=== PATIENT | male | born 1930 | race Caucasian/White ===

== ENCOUNTER 2016-12-12 01:34 | Emergency (ER) | payer OTHER ==
[2016-12-12 01:53] VITALS: BP 186/87; PULSE 99; TEMP 97.5; BMI 29.5
--- NOTE | 2016-12-12 01:59 | PDOC ---
History of Present Illness - General Chief Complaint: Urinary Problem Stated Complaint: URINARY PROBLEM Time Seen by Provider: 12/12/16 01:46 History Source: Patient, Family, Old Records, Primary Care Provider Exam Limitations: No Limitations - History of Present Illness Initial Comments: 12/12/16 01:49 86 y m a-fib, htn, prostate ca sent by (dr carlisle) for treatment of acute urinary retention after silicone injection today no fever, no other complaint. in ed in nad. hemodynamically stable Past History - Past Medical History Allergies/Adverse Reactions: Allergies Allergy/AdvReac Type Severity Reaction Status Date / Time No Known Allergies Allergy Verified 12/12/16 01:46 Home Medications: Ambulatory Orders Atorvastatin Calcium [Lipitor] 10 mg PO HS 09/10/16 Meloxicam [Mobic (Nf) -] 15 mg PO DAILY 09/10/16 Mirabegron [Myrbetriq] 50 mg PO AM 09/10/16 Oxybutynin Chloride [Oxybutynin Chloride ER] 10 mg PO DAILY 09/10/16 Rivaroxaban [Xarelto -] 10 mg PO DAILY 09/10/16 Solifenacin Succinate [Vesicare -] 10 mg PO HS 09/10/16 Cancer: Yes (H/O PROSTATE, BLADDER.) - Psycho/Social/Smoking Cessation Hx Anxiety: No Suicidal Ideation: No Smoking History: Never smoked Hx Alcohol Use: No Drug/Substance Use Hx: No Substance Use Type: None *Physical Exam - Physical Exam General Appearance: Yes: Nourished, Appropriately Dressed. No: Apparent Distress HEENT: positive: Normal ENT Inspection Respiratory/Chest: positive: Lungs Clear, Normal Breath Sounds. negative: Respiratory Distress Cardiovascular: positive: Regular Rhythm, Regular Rate, Irregularly Irregular Gastrointestinal/Abdominal: positive: Normal Bowel Sounds, Tender (suprapubic area), Soft Male Genitalia: positive: normal genitalia. negative: testicular mass, epididymus tender, inguinal hernia, CVAT Musculoskeletal: positive: Normal Inspection. negative: CVA Tenderness Integumentary: positive: Normal Color Neurologic: positive: Alert, Normal Mood/Affect, Normal Response, Motor Strength 5/5 Progress Note - Progress Note Progress Note: acute urinary retention murillo leg bag *DC/Admit/Observation/Transfer Diagnosis at time of Disposition: Acute urinary retention - Discharge Dispostion Disposition: HOME Condition at time of disposition: Improved - Patient Instructions Additional Instructions: KEEP MURILLO AND DRAIN BAG INSTRUCTED CONTINUE MEDICATIONS PRESCRIBED SEE DR. CARLISLE SATURDAY PLANNED
[2016-12-12 02:14] LABS: URINE BILIRUBIN NEGATIVE (NEGATIVE); URINE COLOR LTYELLOW; URINE GLUCOSE (UA) NEGATIVE (NEGATIVE); URINE KETONE NEGATIVE (NEGATIVE); URINE LEUK ESTERASE NEGATIVE (NEGATIVE); URINE NITRITE NEGATIVE (NEGATIVE); URINE UROBILINOGEN NEGATIVE E.U./dl (0.2-1.0)
[2016-12-12 02:16] LABS: URINE APPEARANCE SL CLOUDY; URINE BLOOD 3+ (NEGATIVE); URINE PROTEIN 1+ (NEGATIVE)
[2016-12-12 02:20] LABS: URINE RBC 240 /hpf (0-3); URINE WBC 4 /hpf (3-5)
== END 2016-12-12 02:09 | disposition home or self-care (01) ==
LOC: JER 01:34
PROC: 0T9B70Z Drainage of Bladder with Drainage Device, Via Natural or Artificial Opening (ICD-10-PCS; principal; 2016-12-12)
DX: R33.9 Retention of urine, unspecified (principal); I48.91 Unspecified atrial fibrillation; I10 Essential (primary) hypertension; Z85.46 Personal history of malignant neoplasm of prostate; Z85.51 Personal history of malignant neoplasm of bladder
CPT/HCPCS: 51702; 81003; 81015; 87086; 99282-25

== ENCOUNTER 2017-07-08 23:05 | Inpatient (IN) | payer OTHER ==
--- NOTE | 2017-07-09 00:05 | PDOC ---
History of Present Illness - General Stated Complaint: BLOOD IN BOWELS Time Seen by Provider: 07/09/17 00:01 - History of Present Illness Initial Comments: 07/09/17 00:04 CHIEF COMPLAINT: rectal bleeding HISTORY OF PRESENT ILLNESS: 86 yo M with hx of a-fib (on Xarelto), HLD, and bladder/prostate CA presents to ED with rectal bleeding. Patient's daughter is at bedside and states that the bleeding began tonight. The daughter reports that during dinner tonight the patient went to the restroom and the entire bowl was full of bloody stool. She states that two more episodes occurred tonight, both with a significant amount of blood in the toilet bowl. Patient denies any abdominal pain, shortness of breath, chest pain, palpitations, lightheadedness, dizziness, headache, and repeatedly states that he has no other symptoms at this time. PAST MEDICAL HISTORY: as per HPI FAMILY HISTORY: Denies SOCIAL HISTORY: Denies tobacco, alcohol, illicit drug use. SURGICAL HISTORY: Denies ALLERGIES: No known drug allergies REVIEW OF SYSTEMS General/Constitutional: Denies fever or chills. Denies weakness, weight change. HEENT: Denies change in vision. Denies ear pain or discharge. Denies sore throat. Cardiovascular: Denies chest pain or shortness of breath. Respiratory: Denies cough, wheezing, or hemoptysis. Gastrointestinal: Rectal bleeding. Denies nausea, vomiting, diarrhea or constipation. Denies rectal bleeding. Genitourinary: Denies dysuria, frequency, or change in urination. Musculoskeletal: Denies joint or muscle swelling or pain. Denies neck or back pain. Skin and breasts: Denies rash or easy bruising. Neurologic: Denies headache, vertigo, loss of consciousness, or loss of sensation. PHYSICAL EXAM General Appearance: Well-appearing, appropriately dressed. No apparent distress. HEENT: EOMI, PERRLA, normal ENT inspection, normal voice, TMs normal, pharynx normal. No conjunctival pallor. No photophobia, scleral icterus. Neck: Supple. Trachea midline. No tenderness, rigidity, carotid bruit, stridor , lymphadenopathy, or thyromegaly. Respiratory/Chest: Lungs CTAB. No shortness of breath, chest tenderness, respiratory distress, accessory muscle use. No crackles, rales, rhonchi, stridor , wheezing, dullness Cardiovascular: RRR. S1, S2. No JVD, murmur, bradycardia, tachycardia. Vascular Pulses: Dorsalis-Pedis (R): 2+, Dorsalis-Pedis (L): 2+ Gastrointestinal/Abdominal: Normal bowel sounds. Abdomen soft, non-distended. No tenderness or rebound tenderness. No organomegaly, pulsatile mass, guarding , hernia, hepatomegaly, splenomegaly. Lymphatic: No adenopathy, tenderness. Musculoskeletal/Extremities: Normal inspection. FROM of all extremities, normal capillary refill. Pelvis Stable. No CVA tenderness. No tenderness to extremities, pedal edema, swelling, erythema or deformity. Integumentary: Appropriate color, dry, warm. No cyanosis, erythema, jaundice or rash Neurologic: ups driver II-XII intact. Fully oriented, alert. Appropriate mood/affect. Motor strength 5/5. No appreciable EOM palsy, facial droop or sensory deficit. 07/09/17 00:53 Past History - Past Medical History Allergies/Adverse Reactions: Allergies Allergy/AdvReac Type Severity Reaction Status Date / Time No Known Allergies Allergy Verified 07/09/17 00:39 Home Medications: Ambulatory Orders Mirabegron [Myrbetriq] 50 mg PO AM 09/10/16 Oxybutynin Chloride [Oxybutynin Chloride ER] 10 mg PO DAILY 09/10/16 Solifenacin Succinate [Vesicare -] 10 mg PO HS 09/10/16 Cholecalciferol (Vitamin D3) [Vitamin D3] 2,000 unit PO DAILY 01/22/17 Rivaroxaban [Xarelto -] 20 mg PO DAILY 01/22/17 Ibuprofen 800 mg PO ASDIR 01/23/17 Anemia: No Asthma: No Cancer: Yes (H/O PROSTATE, BLADDER.) Cardiac Disorders: Yes (hx atrial fibrillation) CVA: No COPD: No CHF: No Dementia: No Diabetes: No GI Disorders: No Disorders: No HTN: No Hypercholesterolemia: No Liver Disease: No Seizures: No Thyroid Disease: No - Surgical History Abdominal Surgery: No Appendectomy: No Cardiac Surgery: No Cholecystectomy: No Lung Surgery: No Neurologic Surgery: No Orthopedic Surgery: No - Psycho/Social/Smoking Cessation Hx Anxiety: No Suicidal Ideation: No Smoking History: Never smoked Hx Alcohol Use: No Drug/Substance Use Hx: No Substance Use Type: None ED Treatment Course - LABORATORY CBC & Chemistry Diagram: 07/09/17 00:25 07/09/17 00:25 Medical Decision Making - Medical Decision Making 07/09/17 00:58 86 yo M with hx of a-fib (on Xarelto), HLD, and bladder/prostate CA presents to ED with rectal bleeding. -CBC, CMP, PT/PTT/INR, T&S, card profile -EKG Grossly positive guaiac. H&H stable at this time, will repeat CBC in 6 hours for continued monitoring. Discussed case with covering MD Zacarias for PCP Hans. Will admit for inpatient services for active rectal bleeding. *DC/Admit/Observation/Transfer Diagnosis at time of Disposition: Rectal bleeding - Discharge Dispostion Condition at time of disposition: Fair Admit: Yes - Referrals Referrals: Haroon Maxwell MD [Primary Care Provider] -
[2017-07-09 00:34] LABS: BASOPHIL 0.8 % (0-2.0); EOSINOPHIL 2.6 % (0-4.5); MCH 33.3 pg (25.7-33.7); MEAN CELL VOLUME 97.9 fl (80-96); MEAN PLT VOLUME 9.4 fl (7.5-11.1); NEUTROPHILS 46.5 % (42.8-82.8); PLATELET COUNT 179 K/MM3 (134-434); RDW 15.4 % (11.9-15.9); WHITE BLOOD COUNT 5.9 K/mm3 (4.0-10.0)
[2017-07-09 00:49] LABS: INR 1.53 (0.82-1.09)
[2017-07-09 00:51] LABS: ACTIVATED PTT 36.7 SECONDS (26.9-34.4)
[2017-07-09 01:01] LABS: ALBUMIN 3.4 g/dl (3.4-5.0); ANION GAP 8 (8-16); BILIRUBIN,TOTAL 0.4 mg/dL (0.2-1.0); CALCIUM 8.2 mg/dL (8.5-10.1); CO2 25 mmol/L (21-32); GLUCOSE,RANDOM 100 mg/dL (74-106); SGOT/AST 18 U/L (15-37); SGPT/ALT 25 U/L (12-78); TOT PROT 6.5 g/dl (6.4-8.2)
[2017-07-09 01:04] LABS: ALK PHOS 86 U/L (45-117); CPK 94 IU/L (39-308); TROPONIN I < 0.02 ng/ml (0.00-0.05)
[2017-07-09] MEDS ORDERED: PATIENT'S OWN MEDICATION (NON-FORMULARY) (Ibuprofen [Ibuprofen] 800 MG) PO SCH (01:45)
[2017-07-09 02:02] LABS: URINE APPEARANCE CLEAR; URINE BILIRUBIN NEGATIVE (NEGATIVE); URINE BLOOD 1+ (NEGATIVE); URINE COLOR YELLOW; URINE GLUCOSE (UA) NEGATIVE (NEGATIVE); URINE KETONE NEGATIVE (NEGATIVE); URINE LEUK ESTERASE NEGATIVE (NEGATIVE); URINE NITRITE NEGATIVE (NEGATIVE); URINE PROTEIN NEGATIVE (NEGATIVE); URINE UROBILINOGEN NEGATIVE mg/dL (0.2-1.0)
[2017-07-09 02:04] LABS: URINE BACTERIA RARE /hpf (NONE SEEN); URINE MUCUS RARE; URINE RBC 6 /hpf (0-3); URINE WBC 1 /hpf (3-5)
[2017-07-09] MEDS: DEXTROSE 5%-0.45% SALINE 1,000 ML IV SCH ×3 (02:12→18:09)
[2017-07-09 04:03] VITALS: BMI 30.7
[2017-07-09 07:55] LABS: BASOPHIL 0.6 % (0-2.0); EOSINOPHIL 3.3 % (0-4.5); MCH 33.2 pg (25.7-33.7); MCHC 33.7 g/dl (32.0-35.9); MEAN CELL VOLUME 98.4 fl (80-96); MEAN PLT VOLUME 9.8 fl (7.5-11.1); NEUTROPHILS 46.4 % (42.8-82.8); PLATELET COUNT 175 K/MM3 (134-434); RDW 15.1 % (11.9-15.9); WHITE BLOOD COUNT 5.7 K/mm3 (4.0-10.0)
[2017-07-09] MEDS: CHOLECALCIFEROL (VITAMIN D3) 1,000 UNIT TABLET (FP) PO SCH (09:17)
--- NOTE | 2017-07-09 10:50 | CON.GI ---
Consult Consult Specialty:: GI for Dr. Ragland Referred by:: Dr. Haroon Maxwell Reason for Consultation:: Rectal bleeding - History of Present Illness [facility] [employer] [id number] Utilized: "I started having rectal bleeding last night" History of Present Illness: 86M admitted for evaluation of rectal bleeding. He was in his USOH up until yesterday evening. he was at his daughter's house for a birthday libertarian, felt he was going to have a bowel and instead passed bright red blood. This occurred again at his house and he was brought to the ER by family. He had a bloody BM in the ER and earliy in the morn. Triage vitals revealed T: 98.6 P: 68 BP: 158/92. BHis initial Hgb was 13.3. He denied associated lightheadedness , chest pain, shortness of breath, chest pain, constipation or recent change in bowel habits. In review of the [employer] system he had colonoscopy with Dr. Gasca in 2004 that revealed moderate diverticulosis throughout the colon and led to removal of a serrated adenoma as well as tubular adenoma. He recommended a repeat colonoscopy in 2 years however Mr. Basurto has not had one performed since that time. He takes Xarelto preumably for A. Fib and last took it yesterday morning. Ibuprofen is listed on his admission medication list however his daughter denies that Mr. aBsurto takes this. There is no family history of colorectal cancer or other GI malignancy. - History Source History Provided By: Patient, Family Member (Adelina Medley via telephone [phone]) - Past Medical History Cardio/Vascular: Yes: AFIB, HTN Gastrointestinal: Yes: Diverticulosis, Other (colon polyps: tubular adenoma and serrated adenoma 2004) Renal/: Yes: Cancer (prostate, bladder) - Past Surgical History Past Surgical History: Yes: Cataract Removal, Joint Replacement (Left Knee) - Alcohol/Substance Use Hx Alcohol Use: No History of Substance Use: reports: None - Smoking History Smoking history: Never smoked Have you smoked in the past 12 months: No - Social History Usual Living Arrangement: With Spouse ADL: Independent 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 [employer] Place of : Other ([employer] [facility]) History of Recent Travel: No Home Medications - Allergies Allergies/Adverse Reactions: Allergies Allergy/AdvReac Type Severity Reaction Status Date / Time No Known Allergies Allergy Verified 07/09/17 00:39 - Home Medications Home Medications: Ambulatory Orders Mirabegron [Myrbetriq] 50 mg PO AM 09/10/16 Oxybutynin Chloride [Oxybutynin Chloride ER] 10 mg PO DAILY 09/10/16 Solifenacin Succinate [Vesicare -] 10 mg PO HS 09/10/16 Cholecalciferol (Vitamin D3) [Vitamin D3] 2,000 unit PO DAILY 01/22/17 Rivaroxaban [Xarelto -] 20 mg PO DAILY 01/22/17 Ibuprofen 800 mg PO ASDIR 01/23/17 Family Disease History - Family Disease History Family Disease History: Other: Father ( 70's unclear cause), Mother (: 70's unclear cause), Sister (1, healthy), Daughter (hyponatremia) Other Family History: No family history of colorectal cancer or other GI malignancy Review of Systems - Review of Systems Constitutional: denies: Chills, Unintentional Wgt. Loss Cardiovascular: denies: Chest Pain, Shortness of Breath Respiratory: denies: Cough Gastrointestinal: reports: Rectal Bleeding. denies: Abdominal Pain, Constipation, Diarrhea, Dysphagia, Melena, Nausea, Vomiting, Vomiting Blood Physical Exam-GI Vital Signs: Vital Signs Temperature 97.7 F 07/09/17 09:21 Pulse Rate 53 L 07/09/17 09:21 Respiratory Rate 20 07/09/17 09:21 Blood Pressure 136/73 07/09/17 09:21 O2 Sat by Pulse Oximetry (%) 98 07/09/17 03:53 Constitutional: Yes: Calm Eyes: No: Sclera Icterus Cardiovascular: Yes: Pulse Irregular (regular rate), Murmur (2/6 systolic murmur ) Respiratory: Yes: CTA Bilaterally Gastrointestinal Inspection: No: Ascites, Distention, Scars ...Auscultate: Yes: Normoactive Bowel Sounds ...Palpate: Yes: Soft. No: Hepatomegaly, Splenomegaly, Tenderness ...Percussion: No: Tympanitic Extremities: Yes: Other (scar on left knee) Edema: No Neurological: Yes: Alert Labs: CBC, BMP 07/09/17 06:00 INR, PTT INR 1.53 (0.82-1.09) H 07/09/17 00:25 Problem List - Problems (1) Rectal bleeding Assessment/Plan: Painless Rectal Bleeding: Given previous colonoscopy findings, I suspect that diverticular bleeding would need to be higher in the differential. I explained that to assess for alternate causes of bleeding like but not limited to colon polyps, bleeding blood vessels or cancer of the intestinal tract such as colon, especially in the setting of anticoagulation, colonoscopy could be undertaken. I explained this to both Mr. Basurto using [employer] Sales Office Assistant [phone] and his daughter and We discussed potential risks of the procedure like but not limited to bleeding, perforation requiring surgery to repair, infection and sedation medication effects all of which could be potentially life threatening. They both have agreed to the procedure. Plan is as follows: Continue to hold Xarelto in setting of GI bleeding. Last dose was yesterday morning and should be held 24 hours prior to low risk procedure with nl GFR Clear liquid diet Surgical evaluation If worsening bleeding, transefer to ICU and obtain bleeding scan. If appears to be profuse bleeding, CT angiogram Echo ordered as well as cardiology consult pre-procedurally Plan for colonoscopy 07/10/17. NPO after midnight except meds w/ small sips water. Code(s): K62.5 - HEMORRHAGE OF ANUS AND RECTUM
--- NOTE | 2017-07-09 11:58 | HP ---
Admitting History and Physical - Primary Care Physician PCP: Haroon Maxwell - Admission Chief Complaint: I was bleeding History of Present Illness: Mr Sb Norris is a pleasant 86 year old male who comes in with rectal bleeding. He is Russian speaking so history and ROS comes through his daughter. She says that he has been doing well and is without complaint. However yesterday he felt he needed to have a bowel movement but instead it was bright red blood. Daughter says it was a lot. At first he did not desire to come to the hospital because he was feeling fine but it occurred a second time and he agreed to come. In spite of this he is without complaint. He denies fevers, chills, lightheadedness, passing out, chest pain, shortness of breath, nausea, vomiting, difficulty or pain on urination, or leg swelling. He states his bleeding has currently stopped. 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 [employer] History of Recent Travel: No Home Medications - Allergies Allergies/Adverse Reactions: Allergies Allergy/AdvReac Type Severity Reaction Status Date / Time No Known Allergies Allergy Verified 07/09/17 00:39 - Home Medications Home Medications: Ambulatory Orders Mirabegron [Myrbetriq] 50 mg PO AM 09/10/16 Oxybutynin Chloride [Oxybutynin Chloride ER] 10 mg PO DAILY 09/10/16 Solifenacin Succinate [Vesicare -] 10 mg PO HS 09/10/16 Cholecalciferol (Vitamin D3) [Vitamin D3] 2,000 unit PO DAILY 01/22/17 Rivaroxaban [Xarelto -] 20 mg PO DAILY 01/22/17 Ibuprofen 800 mg PO ASDIR 01/23/17 Family Disease History - Family Disease History Family Disease History: Other: Father ( 70's unclear cause), Mother (: 70's unclear cause), Sister (1, healthy), Daughter (hyponatremia) Other Family History: No family history of colorectal cancer or other GI malignancy Review of Systems Findings/Remarks: Full review of systems obtained via daughter, as per HPI and otherwise negative Physical Examination Vital Signs: Vital Signs Temperature 36.5 C 07/09/17 09:21 Pulse Rate 53 L 07/09/17 09:21 Respiratory Rate 20 07/09/17 09:21 Blood Pressure 136/73 07/09/17 09:21 O2 Sat by Pulse Oximetry (%) 98 07/09/17 03:53 Constitutional: Yes: Well Nourished, No Distress, Calm Eyes: Yes: Conjunctiva Clear, EOM Intact, PERRL Cardiovascular: Yes: Regular Rate and Rhythm. No: Gallop, Murmur, Rub Respiratory: Yes: Regular, CTA Bilaterally. No: Rales, Rhonchi, Wheezes Gastrointestinal: Yes: Normal Bowel Sounds, Soft. No: Distention, Tenderness Extremities: Yes: WNL Edema: No Labs: CBC, BMP 07/09/17 06:00 Problem List - Problems (1) Rectal bleeding Assessment/Plan: -appreciate GI assistance -xarelto held -monitor for further bleeding -H/H decreased but still within normal range, no need for transfusion -consult general surgery per GI request -planning for colonoscopy Code(s): K62.5 - HEMORRHAGE OF ANUS AND RECTUM (2) Atrial fibrillation Assessment/Plan: -sounds in sinus rhythm on exam -holding xarelto secondary to GI bleed -cardiology consult for cardiology clearance Code(s): I48.91 - UNSPECIFIED ATRIAL FIBRILLATION Qualifiers: Atrial fibrillation type: paroxysmal Qualified Code(s): I48.0 - Paroxysmal atrial fibrillation (3) HLD (hyperlipidemia) Assessment/Plan: -diet controlled Code(s): E78.5 - HYPERLIPIDEMIA, UNSPECIFIED (4) Nocturia Assessment/Plan: -continue vesicare and myrbetriq Code(s): R35.1 - NOCTURIA
[2017-07-09 13:02] LABS: BASOPHIL 0.8 % (0-2.0); EOSINOPHIL 2.3 % (0-4.5); MCH 32.7 pg (25.7-33.7); MCHC 33.3 g/dl (32.0-35.9); MEAN CELL VOLUME 98.3 fl (80-96); MEAN PLT VOLUME 9.7 fl (7.5-11.1); NEUTROPHILS 54.3 % (42.8-82.8); PLATELET COUNT 180 K/MM3 (134-434); WHITE BLOOD COUNT 5.5 K/mm3 (4.0-10.0)
--- NOTE | 2017-07-09 14:56 | CON.CARD ---
Consult Consult Specialty:: cardio Referred by:: brock Reason for Consultation:: rectal bleeding, afib - History of Present Illness Chief Complaint: same History of Present Illness: 86 yo male on xarelto for afib came with bright rectal bleeding. seen by GI. for colonoscopy tomorrow pt states he is comfortable and denies cp, palpitations, sob or syncope PMH: AFib HPL--declines statin - Past Medical History Cardio/Vascular: Yes: AFIB, HTN Gastrointestinal: Yes: Diverticulosis, Other (colon polyps: tubular adenoma and serrated adenoma 2004) Renal/: Yes: Cancer (prostate, bladder) - Past Surgical History Past Surgical History: Yes: Cataract Removal, Joint Replacement (Left Knee) - Alcohol/Substance Use Hx Alcohol Use: No History of Substance Use: reports: None - Smoking History Smoking history: Never smoked Have you smoked in the past 12 months: No - Social History Usual Living Arrangement: With Spouse ADL: Independent 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[facility] [employer] History of Recent Travel: No Home Medications - Allergies Allergies/Adverse Reactions: Allergies Allergy/AdvReac Type Severity Reaction Status Date / Time No Known Allergies Allergy Verified 07/09/17 00:39 - Home Medications Home Medications: Ambulatory Orders Mirabegron [Myrbetriq] 50 mg PO AM 09/10/16 Oxybutynin Chloride [Oxybutynin Chloride ER] 10 mg PO DAILY 09/10/16 Solifenacin Succinate [Vesicare -] 10 mg PO HS 09/10/16 Cholecalciferol (Vitamin D3) [Vitamin D3] 2,000 unit PO DAILY 01/22/17 Rivaroxaban [Xarelto -] 20 mg PO DAILY 01/22/17 Ibuprofen 800 mg PO ASDIR 01/23/17 Family Disease History - Family Disease History Family Disease History: Other: Father ( 70's unclear cause), Mother (: 70's unclear cause), Sister (1, healthy), Daughter (hyponatremia) Other Family History: No family history of colorectal cancer or other GI malignancy Review of Systems - Review of Systems Constitutional: denies: Chills, Fever Eyes: denies: Eye Pain HENT: denies: Nasal Congestion Neck: denies: Stiffness Cardiovascular: denies: Palpitations Respiratory: denies: Orthopnea, PND Gastrointestinal: denies: Diarrhea, Vomiting Blood Genitourinary: denies: Burning, Hematuria Musculoskeletal: denies: Muscle Pain Integumentary: denies: Rash Neurological: denies: Numbness, Seizure, Syncope Endocrine: denies: Excessive Sweating Hematology/Lymphatic: denies: Excessive Bleeding Vital Signs: Vital Signs Temperature 97.7 F 07/09/17 09:21 Pulse Rate 53 L 07/09/17 09:21 Respiratory Rate 20 07/09/17 09:21 Blood Pressure 136/73 07/09/17 09:21 O2 Sat by Pulse Oximetry (%) 97 07/09/17 09:00 Constitutional: Yes: Well Nourished, No Distress Eyes: No: Sclera Icterus HENT: No: Nasal Congestion Neck: No: Decreased ROM Respiratory: Yes: CTA Bilaterally. No: Accessory Muscle Use, Rales, Wheezes Gastrointestinal: Yes: Normal Bowel Sounds. No: Distention, Hepatomegaly, Palpable Mass, Tenderness Cardiovascular: Yes: Pulse Irregular JVD: No Carotid Bruit: No PMI: Non-Displaced Heart Sounds: Yes: S1, S2. No: Gallop Murmur: No: Systolic Murmur, Diastolic Murmur Musculoskeletal: Yes: Other (No kyphosis) Extremities: No: Cool, Cyanosis Edema: No Peripheral Pulses: 2+ Left Carotid, 2+ Right Carotid, 2+ Left Doralis Pedis, 2+ Right Dorsalis Pedis Integumentary: No: Jaundice Neurological: Yes: Alert. No: Seizure Psychiatric: No: Agitated - Other Data Labs, Other Data: CBC, BMP 07/09/17 12:20 INR, PTT INR 1.53 (0.82-1.09) H 07/09/17 00:25 Laboratory Tests 07/09/17 07/09/17 00:25 00:25 WBC 5.9 Hgb 13.3 Plt Count 179 Sodium 138 Potassium 4.6 Carbon Dioxide 25 BUN 23 H D Creatinine 1.0 AST 18 D ALT 25 Creatine Kinase 94 Troponin I < 0.02 Assessment/Plan Echo 04/19: nl LV/EF; nl RV; mild AI Echo 07/21 (): nl LV size, LVSF tds; nl RV; mild-mod AI ECG: afib (67 bpm); normal axis; ? old IWMI; no ST-T abn (no change vs prior office ecg 12/21) Permanent atrial fibrillation --HR CONTROLLED ON ITS OWN, normal LVEF 2016 echo --CHADS-VASC 2, TOLERATED XARELTO PREVIOUSLY, NOW WITH RECTAL BLEEDING--HE IS NOT ANEMIC, BUT IN LIGHT OF LOW CHADS-VASC SCORE AND NO PRIOR H/O CVA, AGREE WITH HOLDING AC UNTIL RISK-STRATIFIED MORE COMPLETELY WITH COLONOSCOPY. Hypercholesterolemia --PRIMARY PREVN, ELDERLY. --ASCVD RISK (AHA CALCULATOR) AT LEAST 30%. --LOW HDL WELL --REC'D STATIN 2015 IN OFFICE WHEN SAW ME--PT DECLINES MEDS preop CV eval: --RCRI = 0, ? functional status --no s/sx of active chf or CAD --may proceed with low risk procedure at low risk of periop CV complications, no testing or med changes indicated
[2017-07-09] MEDS ORDERED: BISACODYL 5 MG TABLET.DR (FP) PO ONE (15:00)
[2017-07-09] MEDS ORDERED: PEG3350/SOD SULF,BICARB,CL/KCL 4,000 ML SOLN.RECON PO ONE (16:00)
--- NOTE | 2017-07-09 17:40 | EKG ---
Test Reason : Blood Pressure : / mmHG Vent. Rate : 067 BPM Atrial Rate : 076 BPM P-R Int : 000 ms QRS Dur : 086 ms QT Int : 404 ms P-R-T Axes : 000 -20 050 degrees QTc Int : 426 ms ATRIAL FIBRILLATION WITH A COMPETING JUNCTIONAL PACEMAKER POSSIBLE INFERIOR INFARCT , AGE UNDETERMINED ABNORMAL ECG WHEN COMPARED WITH ECG OF 10-SEP-2016 13:39, NO SIGNIFICANT CHANGE WAS FOUND REPEAT EKG IF CLINICALLY INDICATED Confirmed by YOU DE LA CRUZ MD ([id number]) on 07/09/2017 5:39:44 PM Referred By: Confirmed By:YOU DE LA CRUZ MD
[2017-07-09 19:04] LABS: MCH 33.3 pg (25.7-33.7); MEAN CELL VOLUME 98.1 fl (80-96); MEAN PLT VOLUME 9.6 fl (7.5-11.1); NEUTROPHILS 48.7 % (42.8-82.8); PLATELET COUNT 184 K/MM3 (134-434); RDW 14.8 % (11.9-15.9); WHITE BLOOD COUNT 6.5 K/mm3 (4.0-10.0)
[2017-07-09] MEDS: SOLIFENACIN SUCCINATE 5 MG TAB (FP) PO SCH (21:23)
--- NOTE | 2017-07-10 08:03 | CONSULT ---
- Consultation REQUESTING PROVIDER: Criselda Nguyen CONSULT REQUEST: We have been asked to surgically evaluate this patient for ( specify). PCP:Tirso Zacarias HISTORY OF PRESENT ILLNESS: 86 y/o Portugese male presented w/ rectal bleeding; he has not had any since admission; he is on Xarelto; hx. obtained from the chart and the patient; he will be having colonoscopy today. PMHx: reviewed PSHx: none Home Medications Medication Instructions Recorded Mirabegron [Myrbetriq] 50 mg PO AM 09/10/16 Oxybutynin Chloride [Oxybutynin 10 mg PO DAILY 09/10/16 Chloride ER] Solifenacin Succinate [Vesicare -] 10 mg PO HS 09/10/16 Cholecalciferol (Vitamin D3) 2,000 unit PO DAILY 01/22/17 [Vitamin D3] Rivaroxaban [Xarelto -] 20 mg PO DAILY 01/22/17 Ibuprofen 800 mg PO ASDIR 01/23/17 Allergies Allergy/AdvReac Type Severity Reaction Status Date / Time No Known Allergies Allergy Verified 07/09/17 00:39 PHYSICAL EXAM: GENERAL: Awake, alert, and fully oriented, in no acute distress. HEAD: Normal with no signs of trauma. EYES:sclera anicteric, conjunctiva clear. ABDOMEN: Soft, nontender, not distended, normoactive bowel sounds, no guarding, no rebound, no masses. No organomegaly. No hernias MUSCULOSKELETAL: Normal ROM at all joints. No bony deformities or tenderness. No CVA tenderness. UPPER EXTREMITIES: 2+ pulses, warm, well-perfused. No cyanosis. Cap refill <2 seconds. No peripheral edema. LOWER EXTREMITIES: 2+ pulses, warm, well-perfused. No calf tenderness. No peripheral edema. NEUROLOGICAL: Normal speech, gait not observed. PSYCH: Cooperative. Good eye contact. Appropriate mood and affect. SKIN: Warm, dry, normal turgor, no rashes or lesions note Vital Signs Temperature 98.4 F 07/10/17 06:40 Pulse Rate 65 07/10/17 06:40 Respiratory Rate 18 07/10/17 06:40 Blood Pressure 126/68 07/10/17 06:40 O2 Sat by Pulse Oximetry (%) 96 07/09/17 21:00 Lab Results WBC 6.5 K/mm3 (4.0-10.0) 07/09/17 18:50 RBC 3.97 M/mm3 (4.00-5.60) L 07/09/17 18:50 Hgb 13.2 GM/dL (11.7-16.9) 07/09/17 18:50 Hct 39.0 % (35.4-49) 07/09/17 18:50 MCV 98.1 fl (80-96) H 07/09/17 18:50 MCHC 34.0 g/dl (32.0-35.9) 07/09/17 18:50 RDW 14.8 % (11.9-15.9) 07/09/17 18:50 Plt Count 184 K/MM3 (134-434) 07/09/17 18:50 Sodium 138 mmol/L (136-145) 07/09/17 00:25 Potassium 4.6 mmol/L (3.5-5.1) 07/09/17 00:25 Chloride 105 mmol/L (98-107) 07/09/17 00:25 Carbon Dioxide 25 mmol/L (21-32) 07/09/17 00:25 Anion Gap 8 (8-16) 07/09/17 00:25 BUN 23 mg/dL (7-18) H D 07/09/17 00:25 Creatinine 1.0 mg/dL (0.7-1.3) 07/09/17 00:25 Random Glucose 100 mg/dL (74-106) 07/09/17 00:25 Calcium 8.2 mg/dL (8.5-10.1) L 07/09/17 00:25 Blood Type O POSITIVE 07/09/17 00:25 Antibody Screen Negative 07/09/17 00:25 INR 1.53 (0.82-1.09) H 07/09/17 00:25 w/u to date reviewed; h/h stable. IMP:LGIB PLAN: As per primary care team and GI;surgical f/u as needed pending colonoscopy findings and/or active/fina/eed in hospital. Himanshu Croft MD FACS Visit type - Case Type Case Type: ED Admission - Emergency Emergency Visit: Yes ED Registration Date: 07/09/17 Care time: The patient presented to the Emergency Department on the above date and was hospitalized for further evaluation of their emergent condition. - New patient This patient is new to me today: Yes Date on this admission: 07/10/17 - Critical Care Critical Care patient: No
[2017-07-10 08:57] LABS: BASOPHIL 0.6 % (0-2.0); MCHC 33.8 g/dl (32.0-35.9); MEAN CELL VOLUME 97.7 fl (80-96); MEAN PLT VOLUME 9.6 fl (7.5-11.1); NEUTROPHILS 48.2 % (42.8-82.8); PLATELET COUNT 180 K/MM3 (134-434); RDW 15.2 % (11.9-15.9); WHITE BLOOD COUNT 4.9 K/mm3 (4.0-10.0)
[2017-07-10] MEDS ORDERED: PROPOFOL 20 ML ONE (08:58)
[2017-07-10] MEDS: DEXTROSE 5%-0.45% SALINE 1,000 ML IV SCH (09:48)
[2017-07-10 09:55] LABS: ALBUMIN 3.3 g/dl (3.4-5.0); ANION GAP 7 (8-16); CALCIUM 8.5 mg/dL (8.5-10.1); CO2 28 mmol/L (21-32); GLUCOSE,RANDOM 96 mg/dL (74-106); MAGNESIUM 1.9 mg/dL (1.8-2.4)
[2017-07-10 09:59] LABS: ALK PHOS 84 U/L (45-117); BILIRUBIN,TOTAL 1.1 mg/dL (0.2-1.0); PHOSPHOROUS 3.2 mg/dL (2.5-4.9); SGOT/AST 15 U/L (15-37); SGPT/ALT 21 U/L (12-78)
--- NOTE | 2017-07-10 10:08 | PN ---
Progress Note (short form) - Note Progress Note: GI Procedure Note: Please see scanned colonoscopy report. No active bleeding seen. Polyp removed and diverticulosis identified but the most likely source of bleeding appears to be hemorrhoids. Sitz baths advised. Would refrain from Xarelto for 10 days. A French staff member served as our detective supervisor.
[2017-07-10] MEDS: CHOLECALCIFEROL (VITAMIN D3) 1,000 UNIT TABLET (FP) PO SCH (12:21)
--- NOTE | 2017-07-10 15:05 | PN ---
Progress Note, Physician Chief Complaint: Mr Basurto is without complaint. Denies cp, sob, n/v. - Current Medication List Current Medications: Active Medications Cholecalciferol (Vitamin D3 -) 2,000 unit PO DAILY [facility] Last Admin: 07/10/17 12:21 Dose: 2,000 unit Dextrose/Sodium Chloride (D5-1/2ns -) 1,000 mls @ 42 mls/hr IV ASDIR [facility] Last Admin: 07/10/17 09:48 Dose: Not Given Non-Formulary Medication (Mirabegron [Myrbetriq]) 50 mg PO AM [facility]SH[facility] Solifenacin (Vesicare -) 10 mg PO HS [facility] Last Admin: 07/09/17 21:23 Dose: 10 mg - Objective Vital Signs: Vital Signs Temperature 36.6 C 07/10/17 10:05 Pulse Rate 65 07/10/17 12:00 Respiratory Rate 18 07/10/17 12:00 Blood Pressure 141/83 07/10/17 12:00 O2 Sat by Pulse Oximetry (%) 98 07/10/17 10:13 Constitutional: Yes: Well Nourished, No Distress, Calm Cardiovascular: Yes: Regular Rate and Rhythm. No: Gallop, Murmur, Rub Respiratory: Yes: Regular, CTA Bilaterally. No: Rales, Rhonchi, Wheezes Gastrointestinal: Yes: Normal Bowel Sounds, Soft. No: Distention, Tenderness Extremities: Yes: WNL Edema: No Labs: CBC, BMP 07/10/17 06:30 07/10/17 07:00 INR, PTT INR 1.53 (0.82-1.09) H 07/09/17 00:25 Problem List - Problems (1) Rectal bleeding Code(s): K62.5 - HEMORRHAGE OF ANUS AND RECTUM (2) Atrial fibrillation Code(s): I48.91 - UNSPECIFIED ATRIAL FIBRILLATION Qualifiers: Atrial fibrillation type: paroxysmal Qualified Code(s): I48.0 - Paroxysmal atrial fibrillation (3) HLD (hyperlipidemia) Code(s): E78.5 - HYPERLIPIDEMIA, UNSPECIFIED (4) Nocturia Code(s): R35.1 - NOCTURIA Assessment/Plan (1) Rectal bleeding Assessment/Plan: -s/p colonoscopy -suspected hemorrhoidal bleed -hold xarelto for 10 days -high fiber diet and sitz bath Code(s): K62.5 - HEMORRHAGE OF ANUS AND RECTUM (2) Atrial fibrillation Assessment/Plan: -holding xarelto -continue current management Code(s): I48.91 - UNSPECIFIED ATRIAL FIBRILLATION Qualifiers: Atrial fibrillation type: paroxysmal Qualified Code(s): I48.0 - Paroxysmal atrial fibrillation (3) HLD (hyperlipidemia) Assessment/Plan: -diet controlled Code(s): E78.5 - HYPERLIPIDEMIA, UNSPECIFIED (4) Nocturia Assessment/Plan: -continue vesicare and myrbetriq Code(s): R35.1 - NOCTURIA Dispo -possible discharge tomorrow
[2017-07-10] MEDS: PATIENT'S OWN MEDICATION (NON-FORMULARY) (Mirabegron [Myrbetriq] 50 MG) PO SCH ×2 (18:50→18:51)
[2017-07-10] MEDS ORDERED: PT OWN MED DRAWER 7, Y5N ONE (18:52)
--- NOTE | 2017-07-10 20:40 | PN ---
Progress Note (short form) - Note Progress Note: Chief Complaint: same History of Present Illness: S: had endoscopy today. no further episodes of bleeding. no cp, palps, dizziness, sob. Current Medications Cholecalciferol (Vitamin D3 -) 2,000 unit PO DAILY [facility] Last Admin: 07/10/17 12:21 Dose: 2,000 unit Dextrose/Sodium Chloride (D5-1/2ns -) 1,000 mls @ 42 mls/hr IV ASDIR [facility] Last Admin: 07/10/17 09:48 Dose: Not Given Non-Formulary Medication (Mirabegron [Myrbetriq]) 50 mg PO AM [facility] Last Admin: 07/10/17 18:51 Dose: Not Given Solifenacin (Vesicare -) 10 mg PO HS [facility] Last Admin: 07/09/17 21:23 Dose: 10 mg Vital Signs - 24 hr 07/09/17 07/10/17 07/10/17 21:00 06:40 08:25 Temperature 97.9 F 98.4 F 97.5 F L Pulse Rate 66 65 55 L Respiratory 18 18 18 Rate Blood Pressure 145/96 126/68 148/75 O2 Sat by Pulse 96 Oximetry (%) 07/10/17 07/10/17 07/10/17 09:00 09:43 09:58 Temperature 97.8 F Pulse Rate 61 51 L Respiratory 18 19 Rate Blood Pressure 129/89 137/87 O2 Sat by Pulse 96 97 97 Oximetry (%) 07/10/17 07/10/17 07/10/17 10:05 10:13 12:00 Temperature 97.8 F Pulse Rate 50 L 57 L 65 Respiratory 15 14 18 Rate Blood Pressure 150/77 160/76 141/83 O2 Sat by Pulse 97 98 Oximetry (%) 07/10/17 07/10/17 15:08 16:30 Temperature 97.9 F 97.9 F Pulse Rate 61 55 L Respiratory 18 20 Rate Blood Pressure 112/51 100/56 O2 Sat by Pulse Oximetry (%) Intake & Output 07/08/17 07/09/17 07/10/17 07/11/17 07:59 07:59 07:59 07:59 Intake Total 2492 886 Output Total 400 1500 800 Balance -400 992 86 Weight 202 lb 5 oz Constitutional: Yes: Well Nourished, No Distress Eyes: No: Sclera Icterus HENT: No: Nasal Congestion Neck: No: Decreased ROM Respiratory: Yes: CTA Bilaterally. No: Accessory Muscle Use, Rales, Wheezes Gastrointestinal: Yes: Normal Bowel Sounds. No: Distention, Hepatomegaly, Palpable Mass, Tenderness Cardiovascular: Yes: Pulse Irregular JVD: No Carotid Bruit: No PMI: Non-Displaced Heart Sounds: Yes: S1, S2. No: Gallop Murmur: No: Systolic Murmur, Diastolic Murmur Musculoskeletal: Yes: Other (No kyphosis) Extremities: No: Cool, Cyanosis Edema: No Peripheral Pulses: 2+ Left Carotid, 2+ Right Carotid, 2+ Left Doralis Pedis, 2+ Right Dorsalis Pedis Integumentary: No: Jaundice Neurological: Yes: Alert. No: Seizure Psychiatric: No: Agitated - Other Data Labs, Other Data: CBC, BMP 07/10/17 06:30 07/10/17 07:00 Assessment/Plan Echo 04/19: nl LV/EF; nl RV; mild AI Echo 07/21 (): nl LV size, LVSF tds; nl RV; mild-mod AI ECG: afib (67 bpm); normal axis; ? old IWMI; no ST-T abn (no change vs prior office ecg 12/21) 86 yo with h/o afib on xarelto, hl, divertculosis, prostatec ca who p/w brbpr. Permanent atrial fibrillation --HR CONTROLLED ON ITS OWN, normal LVEF 2015 echo --CHADS-VASC 2, TOLERATED XARELTO PREVIOUSLY, NOW WITH RECTAL BLEEDING--HE IS NOT ANEMIC, BUT IN LIGHT OF LOW CHADS-VASC SCORE AND NO PRIOR H/O CVA, AGREE WITH HOLDING AC UNTIL RISK-STRATIFIED MORE COMPLETELY WITH COLONOSCOPY. - 07/10 s/p endoscopy today. per gi, recommend holding xarelto for 10 days. Hypercholesterolemia --PRIMARY PREVN, ELDERLY. --ASCVD RISK (AHA CALCULATOR) AT LEAST 30%. --LOW HDL WELL --REC'D STATIN 2015 IN OFFICE WHEN SAW ME--PT DECLINES MEDS preop CV eval: --RCRI = 0, ? functional status --no s/sx of active chf or CAD - cleared to proceed with low risk procedure, estimated to have low risk of periop CV complications, no testing or med changes indicated
[2017-07-10] MEDS: SOLIFENACIN SUCCINATE 5 MG TAB (FP) PO SCH (21:44)
[2017-07-11] MEDS: DEXTROSE 5%-0.45% SALINE 1,000 ML IV SCH (01:04)
[2017-07-11] MEDS: PATIENT'S OWN MEDICATION (NON-FORMULARY) (Mirabegron [Myrbetriq] 50 MG) PO SCH (06:42)
[2017-07-11] MEDS ORDERED: PT OWN MED DRAWER 7, Y5N ONE ×2 (07:12→13:18)
[2017-07-11 07:45] LABS: BASOPHIL 0.7 % (0-2.0); MCH 33.1 pg (25.7-33.7); MCHC 33.8 g/dl (32.0-35.9); MEAN CELL VOLUME 97.8 fl (80-96); MEAN PLT VOLUME 9.7 fl (7.5-11.1); PLATELET COUNT 187 K/MM3 (134-434); RDW 14.9 % (11.9-15.9); WHITE BLOOD COUNT 7.1 K/mm3 (4.0-10.0)
[2017-07-11 08:12] LABS: ANION GAP 7 (8-16); CALCIUM 8.3 mg/dL (8.5-10.1); CO2 28 mmol/L (21-32); GLUCOSE,RANDOM 98 mg/dL (74-106); PHOSPHOROUS 3.5 mg/dL (2.5-4.9)
[2017-07-11] MEDS: CHOLECALCIFEROL (VITAMIN D3) 1,000 UNIT TABLET (FP) PO SCH (09:54)
--- NOTE | 2017-07-11 12:11 | DS ---
Physical Examination Vital Signs: Vital Signs Temperature 36.4 C 07/11/17 04:00 Pulse Rate 82 07/11/17 04:00 Respiratory Rate 20 07/11/17 04:00 Blood Pressure 152/68 07/11/17 04:00 O2 Sat by Pulse Oximetry (%) 98 07/10/17 21:00 Constitutional: Yes: Well Nourished, No Distress, Calm Cardiovascular: Yes: Regular Rate and Rhythm. No: Gallop, Murmur, Rub Respiratory: Yes: Regular, CTA Bilaterally. No: Rales, Rhonchi, Wheezes Gastrointestinal: Yes: Normal Bowel Sounds, Soft. No: Distention, Tenderness Extremities: Yes: WNL Edema: No Labs: CBC, BMP 07/11/17 06:00 07/11/17 06:00 Discharge Summary Reason For Visit: RECTAL BLEEDING Current Active Problems Rectal bleeding (Acute) Hospital Course: (1) Rectal bleeding Code(s): K62.5 - HEMORRHAGE OF ANUS AND RECTUM (2) Atrial fibrillation Code(s): I48.91 - UNSPECIFIED ATRIAL FIBRILLATION Qualifiers: Atrial fibrillation type: paroxysmal Qualified Code(s): I48.0 - Paroxysmal atrial fibrillation (3) HLD (hyperlipidemia) Code(s): E78.5 - HYPERLIPIDEMIA, UNSPECIFIED (4) Nocturia Code(s): R35.1 - NOCTURIA Mr Sb Norris is a very pleasant 86 year old male who comes in with LGIB. He was admitted to the hospital and seen by GI. He was also seen by surgery but no surgical intervention was needed. He was on xarelto and this was held. His bleeding stopped while he was here. He underwent colonscopy which showed a polyp and internal hemorrhoids. Internal hemorrhoids were most likely cause for GI bleed. His blood count remained stable while here and did not require transfusion, he did not have anemia. He is currently stable for discharge home. His family was instructed to hold xarelto until 07/20, place patient on a high fiber diet, and use stool softeners if necessary. 35 minutes spent in preparation of this discharge Condition: Good - Instructions Diet, Activity, Other Instructions: High fiber diet. Hold xarelto for 8 more days (resume on 07/20). Avoid ibuprofen. Resume previous diet. Over the counter stool softeners (like metamucil or miralax) as needed to prevent constipation/hard stool. Referrals: Haroon Maxwell MD [Primary Care Provider] - Pati Francis MD [Staff Physician] - Disposition: HOME - Home Medications Comprehensive Discharge Medication List: Ambulatory Orders Mirabegron [Myrbetriq] 50 mg PO AM 09/10/16 Oxybutynin Chloride [Oxybutynin Chloride ER] 10 mg PO DAILY 09/10/16 Solifenacin Succinate [Vesicare -] 10 mg PO HS 09/10/16 Cholecalciferol (Vitamin D3) [Vitamin D3] 2,000 unit PO DAILY 01/22/17 Rivaroxaban [Xarelto -] 20 mg PO DAILY 01/22/17
[2017-07-11 12:23] VITALS: BP 127/74; PULSE 76; TEMP 97.9
--- NOTE | 2017-07-11 13:06 | PATH ---
Surgical Pathology Report Patient Name: JASON SALVADOR Med. Rec. #: [id number] /Age/Gender: 1930 (Age: 86) / M Account: [id number] Location: [facility] MED/SURG Taken: 07/10/2017 Received: 07/10/2017 Reported: 07/11/2017 Physicians: Pati Francis M.D. Specimen(s) Received A: BX CECAL POLYP B: DISTAL TRANSVERSE COLON POLYP C: RECTAL POLYP Clinical History Rectal bleeding Diverticulosis, colon polyps (cecum, distal transverse colon, rectum) Final Diagnosis A. COLON, CECUM, POLYP, BIOPSY: CONSISTENT WITH AN INFLAMMATORY-TYPE POLYP. B. COLON, DISTAL TRANSVERSE, POLYP, POLYPECTOMY: TUBULAR ADENOMA. C. RECTUM, POLYP, POLYPECTOMY: SERRATED ADENOMA. Electronically Signed Vj Hernández M.D. Gross Description A. Received in formalin, labeled "biopsy cecal polyp" is a rudd, irregular portion of soft tissue measuring 0.4 cm in greatest dimension. The specimen is submitted in toto in one cassette. B. Received in formalin, labeled "distal transverse colon polyp" is a rudd, irregular portion of soft tissue measuring 0.1 cm in greatest dimension. The specimen is submitted in toto in one cassette. C. Received in formalin, labeled "rectal polyp" is a rudd, polypoid portion of soft tissue measuring 0.7 cm in greatest dimension. The specimen is submitted in toto in one cassette. /07/10/201707/10/2017
== END 2017-07-11 13:18 | disposition home or self-care (01) | DRG 253 ==
LOC: JER 23:05 → JERBED 07-09 01:37 → J8W 07-09 03:47
PROVIDERS: ADMIT Specialist; ATTEND Specialist
PROC: 0DBL8ZX Excision of Transverse Colon, Via Natural or Artificial Opening Endoscopic, Diagnostic (ICD-10-PCS; 2017-07-10)
PROC: 0DBH8ZX Excision of Cecum, Via Natural or Artificial Opening Endoscopic, Diagnostic (ICD-10-PCS; principal; 2017-07-10 09:00)
DX: K62.5 Hemorrhage of anus and rectum (principal); I48.2 Chronic atrial fibrillation; C79.11 Secondary malignant neoplasm of bladder; Z79.01 Long term (current) use of anticoagulants; E78.5 Hyperlipidemia, unspecified; R35.1 Nocturia; K64.8 Other hemorrhoids; C61 Malignant neoplasm of prostate; K57.90 Diverticulosis of intestine, part unspecified, without perforation or abscess without bleeding; K63.5 Polyp of colon
CPT/HCPCS: 36415; 80048; 80053; 81003; 81015; 82272; 83735; 84100; 84484; 85025; 85610; 85730; 86850; 86900; 86901; 87086; 88305-TC; 93005; 93010; 93306-TC; 99282-25

== ENCOUNTER 2018-01-13 07:44 | Emergency (ER) | payer MEDICARE, OTHER ==
[2018-01-13] MEDS ORDERED: RAPID SEQUENCE INTUBATION KIT NR ONE (07:55)
[2018-01-13] MEDS ORDERED: PROPOFOL 1,000,000 MCG/100 ML VIAL ONE (08:06)
[2018-01-13 08:15] VITALS: BMI 30.4
[2018-01-13 08:34] LABS: HEMATOCRIT 45.4 % (35.4-49); HEMOGLOBIN 15.3 GM/dL (11.7-16.9); MCH 32.9 pg (25.7-33.7); MCHC 33.7 g/dl (32.0-35.9); MEAN CELL VOLUME 97.5 fl (80-96); MEAN PLT VOLUME 9.9 fl (7.5-11.1); PLATELET COUNT 142 K/MM3 (134-434); RBC 4.66 M/mm3 (4.00-5.60); RDW 14.4 % (11.9-15.9); WHITE BLOOD COUNT 10.4 K/mm3 (4.0-10.0)
[2018-01-13 08:36] LABS: VENOUS PC02 49.4 mmHg (38-52); VENOUS PH 7.29 (7.32-7.42)
[2018-01-13 08:50] LABS: INR 1.12 (0.82-1.09); PROTHROMBIN TIME (PATIENT) 12.6 SEC (9.98-11.88)
[2018-01-13 08:52] LABS: ACTIVATED PTT 26.6 SECONDS (26.9-34.4)
[2018-01-13 09:05] LABS: ALBUMIN 3.6 g/dl (3.4-5.0); ANION GAP 14 (8-16); BILIRUBIN,TOTAL 0.7 mg/dL (0.2-1.0); BLOOD UREA NITROGEN 20 mg/dL (7-18); CALCIUM 8.5 mg/dL (8.5-10.1); CHLORIDE 104 mmol/L (98-107); CO2 22 mmol/L (21-32); CREATININE 1.3 mg/dL (0.7-1.3); GLUCOSE,RANDOM 152 mg/dL (74-106); POTASSIUM 3.8 mmol/L (3.5-5.1); SGOT/AST 28 U/L (15-37); SGPT/ALT 23 U/L (12-78); SODIUM 140 mmol/L (136-145); TOT PROT 7.4 g/dl (6.4-8.2)
[2018-01-13 09:08] LABS: ALK PHOS 92 U/L (45-117)
[2018-01-13] MEDS ORDERED: EPINEPHrine 1:10,000 (P-F SYR) 1 MG/10 ML DISP.SYRIN ONE ×2 (09:28)
[2018-01-13 09:58] LABS: ALBUMIN 2.6 g/dl (3.4-5.0); ANION GAP 14 (8-16); BILIRUBIN,TOTAL 0.4 mg/dL (0.2-1.0); BLOOD UREA NITROGEN 22 mg/dL (7-18); CHLORIDE 108 mmol/L (98-107); CO2 18 mmol/L (21-32); CREATININE 1.5 mg/dL (0.7-1.3); GLUCOSE,RANDOM 280 mg/dL (74-106); POTASSIUM 4.4 mmol/L (3.5-5.1); SGOT/AST 25 U/L (15-37); SGPT/ALT 22 U/L (12-78); SODIUM 140 mmol/L (136-145); TOT PROT 5.1 g/dl (6.4-8.2)
[2018-01-13 09:59] LABS: ALK PHOS 65 U/L (45-117)
--- NOTE | 2018-01-13 10:12 | PDOC ---
History of Present Illness - General History Source: EMS, Family Exam Limitations: Clinical Condition - History of Present Illness Initial Comments: 01/13/18 10:17 Patient is an 87M with history of afib on xarelto, prostate cancer, blood cancer and HLD here today complaining of chest pain. Family reports that he was in his usual state of health yesterday. The chest pain started 30 minutes prior to arrival. EMS reports elevated blood pressures in the field with heart rates in the 40-60s. Patient was alert and talking in the field. Patient arrived in the ED, got an EKG, then lost pulses. <Eusebio Huertas - Last Filed: 01/13/18 11:04> <Angel Banerjee - Last Filed: 01/13/18 11:26> - General Chief Complaint: Chest Pain Stated Complaint: CHEST PAIN Time Seen by Provider: 01/13/18 08:20 Past History - Past Medical History Anemia: No Asthma: No Cancer: Yes (H/O PROSTATE, BLADDER.) Cardiac Disorders: Yes (hx atrial fibrillation) CVA: No COPD: No CHF: No Dementia: No Diabetes: No GI Disorders: No Disorders: No HTN: No Hypercholesterolemia: No Liver Disease: No Seizures: No Thyroid Disease: No - Surgical History Abdominal Surgery: No Appendectomy: No Cardiac Surgery: No Cholecystectomy: No Lung Surgery: No Neurologic Surgery: No Orthopedic Surgery: No - Immunization History Immunization Up to Date: No - Suicide/Smoking/Psychosocial Hx Smoking History: Never smoked Have you smoked in the past 12 months: No Hx Alcohol Use: No Drug/Substance Use Hx: No Substance Use Type: None <Eusebio Huertas - Last Filed: 01/13/18 11:04> <Angel Banerjee - Last Filed: 01/13/18 11:26> - Past Medical History Allergies/Adverse Reactions: Allergies Allergy/AdvReac Type Severity Reaction Status Date / Time No Known Allergies Allergy Verified 07/09/17 00:39 Home Medications: Ambulatory Orders Mirabegron [Myrbetriq] 50 mg PO AM 09/10/16 Oxybutynin Chloride [Oxybutynin Chloride ER] 10 mg PO DAILY 09/10/16 Solifenacin Succinate [Vesicare -] 10 mg PO HS 09/10/16 Cholecalciferol (Vitamin D3) [Vitamin D3] 2,000 unit PO DAILY 03/21/17 Rivaroxaban [Xarelto -] 20 mg PO DAILY 01/22/17 Review of Systems - Review of Systems Able to Perform ROS?: No (2/2 clinical condition) <Eusebio Huertas - Last Filed: 01/13/18 11:04> *Physical Exam - Vital Signs Last Vital Signs Temp Pulse Resp BP Pulse Ox 119 H 26 H 131/113 98 01/13/18 07:50 01/13/18 08:20 01/13/18 07:50 01/13/18 07:50 - Physical Exam Comments: 01/13/18 10:23 GENERAL: Intubated, sedated HEAD: No signs of trauma, normocephalic, atraumatic EYES: PERRLA, EOMI, sclera anicteric, conjunctiva clear ENT: Auricles normal inspection, hearing grossly normal, nares patent, oropharynx clear without exudates. Moist mucosa NECK: Normal ROM, supple, no lymphadenopathy, JVD, or masses LUNGS: No distress, speaks full sentences, clear to auscultation bilaterally HEART: Tachycardic, normal s1/s2. ABDOMEN: Soft, nontender. No guarding, no rebound. No masses EXTREMITIES: Normal inspection, No edema. No clubbing or cyanosis. SKIN: Warm, Dry, normal turgor, no rashes or lesions noted. <Eusebio Huertas - Last Filed: 01/13/18 11:04> - Vital Signs Last Vital Signs Temp Pulse Resp BP Pulse Ox 119 H 26 H 131/113 98 01/13/18 07:50 01/13/18 08:20 01/13/18 07:50 01/13/18 07:50 <Angel Banerjee - Last Filed: 01/13/18 11:26> Procedures - Central Line Central Line Lumen: triple Central Line Position: femoral (L) Amount of anesthesia (ccs): 0 (crash) Complications: none Post Central Line Insertion: sutured, good blood return - Intubation Time of Intubation: 07:57 Intubation Method: orotracheal Blade used: Rothman Tube Size (Fr): 7.0 Medications: Etomidate, Succinylcholine Tube position @ lip (cm): 21 Tube position confirmed by: Direct visualization, CO2 detector, Chest x-ray, Breath sounds Breath Sounds after Intubation: equal Intubation Complications: no complications Post Intubation Xray: Yes (tube appropriately placed, widened mediastinum) - Additional Procedures Additional Procedures: other (Pericardiocentesis) Progress: 01/13/18 10:13 Patient was without pulses with evidence of pericardial tamponade on bedside ultrasound. The patients thorax was prepped in a sterile fashion. Ultrasound was used to identify the fluid and observe the needle entering the pericardial space. The needle was introduced into the pericardial space. 15-20ml fluid was removed. The needle was then removed. The patient tolerated the procedure. Blood loss was minimal. <Eusebio Huertas - Last Filed: 01/13/18 11:04> ED Treatment Course - LABORATORY CBC & Chemistry Diagram: 01/13/18 08:19 01/13/18 09:17 - ADDITIONAL ORDERS Additional order review: Laboratory Results 01/13/18 01/13/18 01/13/18 08:30 08:19 08:19 PT with INR INR PTT (Actin FS) VBG pH POC VBG pCO2 POC VBG pO2 Mixed VBG HCO3 Sodium 140 Potassium 3.8 Chloride 104 Carbon Dioxide 22 D Anion Gap 14 BUN 20 H D Creatinine 1.3 D Creat Clearance w eGFR 52.22 POC Glucometer Random Glucose 152 H D Lactic Acid 4.3 H* Calcium 8.5 Total Bilirubin 0.7 D AST 28 D ALT 23 Alkaline Phosphatase 92 Troponin I 0.02 Total Protein 7.4 D Albumin 3.6 01/13/18 01/13/18 01/13/18 08:19 08:19 08:05 PT with INR 12.60 H INR 1.12 PTT (Actin FS) 26.6 L VBG pH 7.29 L POC VBG pCO2 49.4 POC VBG pO2 19.0 L* Mixed VBG HCO3 22.8 Sodium Potassium Chloride Carbon Dioxide Anion Gap BUN Creatinine Creat Clearance w eGFR POC Glucometer [id number] Random Glucose Lactic Acid Calcium Total Bilirubin AST ALT Alkaline Phosphatase Troponin I Total Protein Albumin 01/13/18 01/13/18 08:19 08:05 RBC 4.66 D MCV 97.5 H MCHC 33.7 RDW 14.4 MPV 9.9 Neutrophils % No Result Required. Lymphocytes % No Result Required. POC Glucometer [id number] - RADIOLOGY Radiology Studies Ordered: Category Date Time Status CHEST X-RAY PORTABLE* [RAD] Stat Radiology 01/13/18 08:20 Completed <Eusebio Huertas - Last Filed: 01/13/18 11:04> - LABORATORY CBC & Chemistry Diagram: 01/13/18 08:19 01/13/18 09:17 - ADDITIONAL ORDERS Additional order review: Laboratory Results 01/13/18 01/13/18 01/13/18 09:17 08:30 08:19 PT with INR INR PTT (Actin FS) VBG pH POC VBG pCO2 POC VBG pO2 Mixed VBG HCO3 Sodium 140 Potassium 4.4 Chloride 108 H Carbon Dioxide 18 L Anion Gap 14 BUN 22 H Creatinine 1.5 H Creat Clearance w eGFR 44.27 POC Glucometer Random Glucose 280 H D Lactic Acid 4.3 H* Calcium 6.9 L* Total Bilirubin 0.4 D AST 25 ALT 22 Alkaline Phosphatase 65 D Troponin I < 0.02 0.02 Total Protein 5.1 L D Albumin 2.6 L D 01/13/18 01/13/18 01/13/18 08:19 08:19 08:19 PT with INR 12.60 H INR 1.12 PTT (Actin FS) 26.6 L VBG pH 7.29 L POC VBG pCO2 49.4 POC VBG pO2 19.0 L* Mixed VBG HCO3 22.8 Sodium 140 Potassium 3.8 Chloride 104 Carbon Dioxide 22 D Anion Gap 14 BUN 20 H D Creatinine 1.3 D Creat Clearance w eGFR 52.22 POC Glucometer Random Glucose 152 H D Lactic Acid Calcium 8.5 Total Bilirubin 0.7 D AST 28 D ALT 23 Alkaline Phosphatase 92 Troponin I Total Protein 7.4 D Albumin 3.6 01/13/18 08:05 PT with INR INR PTT (Actin FS) VBG pH POC VBG pCO2 POC VBG pO2 Mixed VBG HCO3 Sodium Potassium Chloride Carbon Dioxide Anion Gap BUN Creatinine Creat Clearance w eGFR POC Glucometer 162.75832 Random Glucose Lactic Acid Calcium Total Bilirubin AST ALT Alkaline Phosphatase Troponin I Total Protein Albumin 01/13/18 01/13/18 08:19 08:05 RBC 4.66 D MCV 97.5 H MCHC 33.7 RDW 14.4 MPV 9.9 Neutrophils % No Result Required. Lymphocytes % No Result Required. POC Glucometer [id number] <Angel Banerjee - Last Filed: 01/13/18 11:26> Medical Decision Making - Critical Care Time Total Critical Care Time (minutes): 180 Critical Care Statement: The care of this patient involved high complexity decision making to prevent further life threatening deterioration of the patient 's condition and/or to evaluate & treat vital organ system(s) failure or risk of failure. - Medical Decision Making 01/13/18 10:29 Patient is an 87M with history of afib, bladder cancer, and prostate cancer here with chest pain. Patient lost pulses after EKG performed. CPR was initiated. IV access placed, fluids started, epinephrine give. Pulses returned after about 5 minutes of compressions. Patient was then intubated with etomidate and succinylcholine for induction and a 7.0 ET tube 21cm at the lip. Tube confirmed as noted in procedure note. Patient's blood pressures were initially low with systolics in 70s, raised to 90s with fluid administration. EKG was reviewed that was done prior to cardiac arrest. EKG shows atrial fibrillation with rate of 53bpm. No st elevations/depressions. Normal QRS and QTc intervals. EKG post arrest showed afib with rvr, st depressions in lateral leads. Focused bedside ultrasound was done to evaluate for undifferentiated shock. FAST exam reveal no free fluid in the abdomen. Lung exam showed no pneumothorax. Cardiac exam showed pericardial effusion with right ventricle bowing suggestive of possible tamponade. A decision was made to place a central line to maximize patient preload while patient was evaluated for possible aortic dissection. Patient started decompensating again while central line was placed, done in crash fashion to maximize access. CPR was resumed and ACLS performed. Bedside ultrasound showed pericardial tamponade. Other causes of cardiac arrest were considered, but we believed that patient most likely had pericardial tamponade from an aortic dissection. Pericardiocentesis was attempted and 15-20mL of blood was returned. Pulses were momentarily returned with blood pressure with a systolic of 130s. CT surgery and IR were consulted, and placed a 10fr into pericardium under ultrasound guidance. 60-90mL of blood was removed. Compressions were restarted, but we were unable to regain pulses for 10 minutes. US confirmed resolution of cardiac tamponade, patient was in PEA arrest. Total down time is estimated to be about 50 minutes. Patient was pronounced at 9:51. <Eusebio Huertas - Last Filed: 01/13/18 11:04> *DC/Admit/Observation/Transfer <Eusebio Huertas - Last Filed: 01/13/18 11:04> <Angel Banerjee - Last Filed: 01/13/18 11:26> Diagnosis at time of Disposition: Pericardial effusion with cardiac tamponade Aortic dissection Qualifiers: Aortic location: unspecified Qualified Code(s): I71.00 - Dissection of unspecified site of aorta - Discharge Dispostion Condition at time of disposition:
[2018-01-13 10:13] LABS: CALCIUM 6.9 mg/dL (8.5-10.1)
[2018-01-13 10:40] LABS: MACROCYTOSIS 1+
[2018-01-13 10:52] LABS: PLATELET ESTIMATE ADEQUATE
--- NOTE | 2018-01-13 10:56 | PDOC ---
Attending Attestation - Resident Resident Name: ZachlucreciaEusebio - ED Attending Attestation I have performed the following: I have examined & evaluated the patient, The case was reviewed & discussed with the resident, I agree w/resident's findings & plan, Exceptions are as noted - HPI HPI: 01/13/18 10:56 87-year-old male brought in by EMS with altered mental status and chest pain this morning. Patient was in his usual state of very high functioning health, went to bed at his baseline last night, this morning there was some groaning from his room and he was found with decreased mental status and complaining of chest and upper abdominal pain. He was noted to be hypertensive in the field by EMS and his grandson, a agricultural and forestry supervisor. On arrival in the ED, patient alert but with borderline blood pressure. EKG showed atrial fibrillation in no acute ischemia. Minutes after arrival, patient had loss of consciousness/unresponsiveness witnessed by family, found to have pulseless bradycardia and ACLS was initiated. The patient initially immediately regained a pulse, was intubated using RSI without difficulty, fluid resuscitation was initiated. Ultrasound for undifferentiated shock yielded pericardial effusion, initially without RV collapse. Pt maintained BP of 100 systolic, was sedated after intubation. working diagnosis, ? dissection given the CP/elevated BP and pericardial effusion. Pt again decompensated and lost vital signs. ACLS restarted (see code sheet for epi/mg/bicard dosing). Bedside sono showed increased size of pericardial effusion and early RV collapse. thoracic sx, ICU, and IR called stat. Emergency bedside pericardiocentesis performed by myself and under direct supervision. about 10-20cc blood removed with intermittent return of BP and pulse. Dr. Kaye of thoracic and Dr. Cameron at bedside, pericardial catheter inserted and 60cc blood extracted. Pt remained without pulse and no cardiac activity was noted on bedside sono despite improved pericardial effusion size. After discussion with the entire team and family, resuscitations effort suspended and pt pronounced at 951am. Working diagnosis was pericardial tamponade, ? 2/2 dissection. Multiple family members at bedside and made aware, all questions answered. ME called and declined case, #[id number] with Angel Fontana. - Physicial Exam PE: 01/13/18 11:09 see above - Critical Care Time Total Critical Care Time: 210 Critical Care Statement: The care of this patient involved high complexity decision making to prevent further life threatening deterioration of the patient 's condition and/or to evaluate & treat vital organ system(s) failure or risk of failure. - Medical Decision Making 01/13/18 11:03 see above Heart Score/ECG Review #1 ECG reviewed & interpreted by me at: 07:52 01/13/18 11:12 afib at [address] change
[2018-01-13 12:38] VITALS: BP 64/48; PULSE 91; TEMP 97
--- NOTE | 2018-01-13 16:00 | EKG ---
Test Reason : Blood Pressure : / mmHG Vent. Rate : 053 BPM Atrial Rate : 174 BPM P-R Int : 000 ms QRS Dur : 092 ms QT Int : 470 ms P-R-T Axes : 000 -02 074 degrees QTc Int : 441 ms POOR DATA QUALITY IN CURRENT ECG PRECLUDES SERIAL COMPARISON ATRIAL FIBRILLATION WITH SLOW VENTRICULAR RESPONSE INFERIOR INFARCT (CITED ON OR BEFORE 09-JUL-2017) ABNORMAL ECG WHEN COMPARED WITH ECG OF 09-JUL-2017 00:22, QUESTIONABLE CHANGE IN INITIAL FORCES OF INFERIOR LEADS NONSPECIFIC T WAVE ABNORMALITY, WORSE IN LATERAL LEADS Confirmed by SHABBIR TAYLOR MD ([id number]) on 01/13/2018 3:59:57 PM Referred By: Confirmed By:SHABBIR TAYLOR MD
== END 2018-01-13 13:29 | disposition expired ==
LOC: JER 07:44
PROC: 5A12012 Performance of Cardiac Output, Single, Manual (ICD-10-PCS; principal; 2018-01-13)
PROC: 0BH17EZ Insertion of Endotracheal Airway into Trachea, Via Natural or Artificial Opening (ICD-10-PCS; 2018-01-13)
PROC: 0W9D3ZZ Drainage of Pericardial Cavity, Percutaneous Approach (ICD-10-PCS; 2018-01-13)
PROC: B24CZZZ Ultrasonography of Pericardium (ICD-10-PCS; 2018-01-13)
PROC: 04HL33Z Insertion of Infusion Device into Left Femoral Artery, Percutaneous Approach (ICD-10-PCS; 2018-01-13)
DX: I46.9 Cardiac arrest, cause unspecified (principal); I31.3 Pericardial effusion (noninflammatory); I31.4 Cardiac tamponade; I71.00 Dissection of unspecified site of aorta; I48.91 Unspecified atrial fibrillation; Z79.01 Long term (current) use of anticoagulants; Z85.46 Personal history of malignant neoplasm of prostate; Z85.51 Personal history of malignant neoplasm of bladder
CPT/HCPCS: 31500; 33010; 36140; 36415; 36625; 71045-TC-FY; 76930; 80053; 82803; 82962; 83605; 84484; 85025; 85610; 85730; 87040; 92950; 93005; 93010; 99285-25